=== PATIENT | male | born 1990 | race Two or more races ===

== ENCOUNTER 2019-07-12 17:12 | Inpatient (IN) | payer BC, MEDICAID ==
[~2019-07-12] VITALS: Ht 165.1 cm; Wt 77.6 kg
--- NOTE | 2019-07-12 20:30 | NUR ---
NURSE NOTES: Received report from GE Jauregui @ 1900. [place] [facility] [place] [facility] [place]. Pt transferred into room 319-1. R eyes swollen and can't open it, but no active bleeding. Ct scan result shows nasal bone and periorbital fracture but no acute intracranial hemorrhage or skull fracture. Pt c/o pain 10/10 on R eye and head. Pt has no other skin issue. IV Rt AC 18G intact and patent. Vitals stable. Reviewed belongings. Pt has no valuable belongings, only shorts and socks. Called Dr. Gomes to get an admission order. Bed locked, lowest position, alarm on, side rails up x 2, call light within reach. Will continue to monitor.
[2019-07-12 20:41] VITALS: BP 110/58
--- NOTE | 2019-07-12 21:00 | NUR ---
NURSE NOTES: Received order from Dr. Gomes. Orders noted and carried out.
[2019-07-12] MEDS ORDERED: Morphine Sulfate 2mg/ml Inj(IV/IM USE ONLY) IVP PRN (21:45)
[2019-07-12] MEDS: Morphine Sulfate 4mg/ml Inj (IV USE ONLY) IVP PRN (22:18)
[2019-07-12] MEDS: D5 1/2NS 1,000 ML IV SCH (22:18)
[2019-07-13] VITALS: BP 116/41
[2019-07-13 04:00] VITALS: BP 110/58
--- NOTE | 2019-07-13 07:39 | NUR ---
HAND-OFF: Report given to GE Dowd.
[2019-07-13 08:00] VITALS: BP 117/55
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
[2019-07-13 08:19] LABS: HEMATOCRIT 40.3 % (42.0-52.0); HEMOGLOBIN 13.7 G/DL (14.2-18.0); MEAN CORPUSCULAR VOLUME 94 FL (80-99); PLATELET COUNT 316 K/UL (150-450); RED CELL DISTRIBUTION WIDTH 12.5 % (11.6-14.8); WHITE BLOOD COUNT 9.2 K/UL (4.8-10.8)
[2019-07-13 08:37] LABS: ANION GAP 5 mmol/L (5-15); BLOOD UREA NITROGEN 9 mg/dL (7-18); CALCIUM 8.3 MG/DL (8.5-10.1); CARBON DIOXIDE 26 MMOL/L (21-32); CHLORIDE 107 MMOL/L (98-107); CREATININE 0.9 MG/DL (0.55-1.30); POTASSIUM 3.9 MMOL/L (3.5-5.1); SODIUM 138 MMOL/L (136-145)
[2019-07-13] MEDS: Morphine Sulfate 4mg/ml Inj (IV USE ONLY) IVP PRN ×2 (09:02→20:09)
[2019-07-13 12:00] VITALS: BP 111/63
[2019-07-13] MEDS: D5 1/2NS 1,000 ML IV SCH (13:39)
--- NOTE | 2019-07-13 14:21 | History & Physical ---
History and Physical History & Physicial Dictated for Int Med-Dr Gomes no. [id number]. Denver Sanchez MD Jul 13, 2019 14:21
[2019-07-13 16:00] VITALS: BP 118/82
--- NOTE | 2019-07-13 18:45 | NUR ---
NURSE NOTES: patient went to shower across the unit, ambulatory accompanied by girlfriend. Nurse provided clean clothes, toiletries and towels. Also educated regarding call light inside bathroom for any emergency, to summon nurse.
--- NOTE | 2019-07-13 19:23 | NUR ---
HAND-OFF: Report given to GE You.
--- NOTE | 2019-07-13 19:30 | NUR ---
NURSE NOTES: Received report from GE Dowd. Received pt laying in bed, AOX4, pain level 10/10. Will medicate for pain as needed. IV right AC patent and intact. Bed in lowest position and locked, side rails up x 2, call light within reach. Girlfriend at bedside. Will continue to monitor.
[2019-07-13 20:00] VITALS: BP 119/54
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
[2019-07-14] MEDS: D5 1/2NS 1,000 ML IV SCH ×2 (00:41→14:40)
[2019-07-14 05:54] LABS: HEMATOCRIT 40.2 % (42.0-52.0); HEMOGLOBIN 13.7 G/DL (14.2-18.0); MEAN CORPUSCULAR VOLUME 94 FL (80-99); PLATELET COUNT 306 K/UL (150-450); RED BLOOD COUNT 4.27 M/UL (4.70-6.10); RED CELL DISTRIBUTION WIDTH 12.3 % (11.6-14.8); WHITE BLOOD COUNT 9.4 K/UL (4.8-10.8)
[2019-07-14 05:59] VITALS: BP 119/59
[2019-07-14 06:13] LABS: ANION GAP 6 mmol/L (5-15); BLOOD UREA NITROGEN 11 mg/dL (7-18); CALCIUM 8.3 MG/DL (8.5-10.1); CARBON DIOXIDE 27 MMOL/L (21-32); CHLORIDE 106 MMOL/L (98-107); CREATININE 0.9 MG/DL (0.55-1.30); POTASSIUM 4.3 MMOL/L (3.5-5.1); SODIUM 139 MMOL/L (136-145)
[2019-07-14] MEDS ORDERED: D5 1/2NS 1000ml IV ONE ×2 (06:34→18:20)
--- NOTE | 2019-07-14 07:30 | NUR ---
HAND-OFF: Report given to GE langston. Pt in stable condition.
[2019-07-14 08:00] VITALS: BP 108/60
--- NOTE | 2019-07-14 08:38 | NUR ---
NURSE NOTES: Received report from [facility] [place]. Patient is in bed awake and able to verbalize needs. Stable. Denies pain or SOB. Patient encouraged to use call light for assistance, verbalized understanding. Plan of care discussed with patient. Patient is in bed in locked and lowest position with call light within reach. Will continue to monitor.
--- NOTE | 2019-07-14 09:47 | NUR ---
*-* NO INSURANCE INFORMATION IN THE BAR UNABLE TO SEND CLINICALS OR REVIEWS *-*
[2019-07-14 12:00] VITALS: BP 121/51
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
--- NOTE | 2019-07-14 13:15 | Pulmonology Progress Note ---
Assessment/Plan Problems: (1) Closed fracture nose (2) Contusion (3) No pertinent past medical history Assessment/Plan doing better facial pain is better controlled awaiting ENT Subjective ROS Limited/Unobtainable: No Interval Events: pain is better controlled Allergies: Coded Allergies: IODINE AND IODIDE CONTAINING PRODUC (Verified Allergy, Severe, Hives, 07/12) Shrimp (Verified Allergy, Severe, Hives, 07/12/19) Objective Last 24 Hour Vital Signs Date Time Temp Pulse Resp B/P (MAP) Pulse Ox O2 Delivery O2 Flow Rate FiO2 07/14/19 12:00 97.9 60 18 121/51 (74) 97 07/14/19 09:00 Room Air 07/14/19 08:00 97.8 64 18 108/60 (76) 97 07/14/19 05:59 98.0 61 18 119/59 (79) 95 07/13/19 21:00 Room Air 07/13/19 20:00 98.4 70 20 119/54 (75) 96 07/13/19 16:00 97.9 72 20 118/82 (94) 96 Intake and Output 07/13/19 07/14/19 19:00 07:00 Intake Total 2050 ml 1255 ml Balance 2050 ml 1255 ml Intake Oral 1600 ml 480 ml IV Total 450 ml 775 ml # Voids 5 3 # Bowel Movements 1 General Appearance: WD/WN HEENT: atraumatic Respiratory/Chest: lungs clear, no respiratory distress Cardiovascular: normal rate, regularly irregular Abdomen: normal bowel sounds, no organomegaly Genitourinary: normal external genitalia Extremities: no cyanosis Neurologic/Psychiatric: teradata solution architect II-XII grossly normal Laboratory Tests 07/14/19 05:25: White Blood Count 9.4, Red Blood Count 4.27L, Hemoglobin 13.7L, Hematocrit 40.2L , Mean Corpuscular Volume 94, Mean Corpuscular Hemoglobin 32.0H, Mean Corpuscular Hemoglobin Concent 34.0, Red Cell Distribution Width 12.3, Platelet Count 306, Mean Platelet Volume 4.8L, Neutrophils (%) (Auto) , Lymphocytes (%) ( Auto) , Monocytes (%) (Auto) , Eosinophils (%) (Auto) , Basophils (%) (Auto) , Sodium Level 139, Potassium Level 4.3, Chloride Level 106, Carbon Dioxide Level 27, Anion Gap 6, Blood Urea Nitrogen 11, Creatinine 0.9, Estimat Glomerular Filtration Rate > 60, Glucose Level 112H, Calcium Level 8.3L Current Medications Medications (Trade) Dose Ordered Sig/Zara Route PRN Reason Start Time Stop Time Status Last Admin Dose Admin Acetaminophen (Tylenol) 650 mg Q6H PRN ORAL Mild Pain/Temp > 100.5 07/12/19 21:45 08/11/19 21:44 Clindamycin HCl/ Dextrose 50 ml @ 100 mls/hr Q8HR IV 07/12/19 23:00 07/19/19 22:59 07/14/19 05:47 Dextrose/Sodium Chloride 1,000 ml @ 75 mls/hr [id number] IV 07/12/19 22:00 08/11/19 21:59 07/14/19 00:41 Morphine Sulfate (Morphine Sulfate) 2 mg Q4H PRN IVP Moderate Pain (Pain Scale 4-6) 07/12/19 21:45 07/19/19 21:44 07/14/19 05:57 Morphine Sulfate (Morphine Sulfate) 4 mg Q4H PRN IVP Severe Pain (Pain Scale 7-10) 07/12/19 21:45 07/19/19 21:44 07/13/19 20:09 Ondansetron HCl (Zofran) 4 mg Q4H PRN IVP Nausea & Vomiting 07/12/19 21:45 08/11/19 21:44 07/14/19 05:49 Soraya Monson MD Jul 14, 2019 13:15
--- NOTE | 2019-07-14 15:36 | NUR ---
CASE MANAGEMENT:INITIAL REVIEW 29YR OLD MALE BIBA: DIRECT ADMIT FROM [place] CC: FACIAL CONTUSION SI: FACIAL CONTUSION 98.2 90 18 110/58 97% ON RA IS: IV CLINDAMYCIN Q8HR IV DEXTROSE @75HR IV ZOFRAN Q4/PRN IV MORPHINE SULFATE Q4/PRN IV MORPHINE SULFATE Q4/PRN : 3E MED SURG DCP: HOME WHEN MEDICALLY CLEARED CASE MANAGEMENT: REVIEW 07/13/19 SI: FACIAL CONTUSION 97.9 71 20 110/58 98% ON RA CA+ 8.3; RBC 4.30; H/H 13.7/40.2 IS: IV CLINDAMYCIN Q8HR IV DEXTROSE @75HR IV ZOFRAN Q4/PRN IV MORPHINE SULFATE Q4/PRN IV MORPHINE SULFATE Q4/PRN : 3E MED SURG DCP: HOME WHEN MEDICALLY CLEARED CASE MANAGEMENT: REVIEW 07/14/19 SI: FACIAL CONTUSION 97.8 64 18 108/60 97% ON RA CA 8.3; RBC 4.27; H/H 13.7/40.2 IS: IV CLINDAMYCIN Q8HR IV DEXTROSE @75HR IV ZOFRAN Q4/PRN IV MORPHINE SULFATE Q4/PRN IV MORPHINE SULFATE Q4/PRN : 3E MED SURG DCP: HOME WHEN MEDICALLY CLEARED PLAN: CONSULT
[2019-07-14 16:00] VITALS: BP 117/49
--- NOTE | 2019-07-14 16:42 | NUR ---
*-* INSURANCE *-* ALL CLINICALS AND REVIEWS HAVE BEEN FAXED TO: SY Ref#[id number] No [facility]#[phone]
--- NOTE | 2019-07-14 18:20 | NUR ---
NURSE NOTES: Patient discharged home as ordered. Stable. Denies pain or SOB. Patient was given thorough discharge instructions by RN. Patient verbalized understanding. Patient has written instructions to take home as well. Patient has all belongings. Ice pack given to patient to take home. Patient's girlfriend is at bedside and followed along with discharge instructions. No IV access. Skin is clean, dry, and intact. Patient assisted into private car by girlfriend without incident.
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
--- NOTE | 2019-07-15 10:51 | NUR ---
*-* INSURANCE *-* DISCHARGE SUMMARY HAS BEEN FAXED TO: SY Ref#[id number] No [facility]#[phone]
== END 2019-07-14 18:21 | disposition home or self-care (01) | DRG 155 ==
LOC: 3E 19:56
DX: S02.2XXA Fracture of nasal bones, initial encounter for closed fracture (principal); S02.31XA Fracture of orbital floor, right side, initial encounter for closed fracture; F07.81 Postconcussional syndrome; S00.83XA Contusion of other part of head, initial encounter; Z88.8 Allergy status to other drugs, medicaments and biological substances; Y09 Assault by unspecified means
CPT/HCPCS: 36415; 80048; 83735; 85007; 85025; 85610; 85730; J2405; S0077

== ENCOUNTER 2019-07-16 12:22 | Day surgery (SDC) | payer BC, MEDICAID ==
[2019-07-16] VITALS (8 sets, daily range): BP systolic 111–145; BP diastolic 59–78
[~2019-07-16] VITALS: Ht 167.6 cm; Wt 81.6 kg
[2019-07-16] MEDS ORDERED: Lidocaine 1% 10mg/ml/Epi 0.005mg/ml 30ml vial INJ ONE (12:43)
[2019-07-16] MEDS ORDERED: Oxymetazoline 0.05% Na Spray 30ml NASAL ONE (12:43)
[2019-07-16] MEDS ORDERED: Bupivacaine 0.5% Inj 30 ml vial INJ ONE (12:44)
--- NOTE | 2019-07-16 12:51 | Pre-Procedure Note/Attestation ---
Pre-Procedure Note/Attestation Complete Prior to Procedure Planned Procedure: not applicable Procedure Narrative: closed reduction nasal bone fracture Indications for Procedure Pre-Operative Diagnosis: nasal bone fracture Attestation I attest that I discussed the nature of the procedure; its benefits; risks and complications; and alternatives (and the risks and benefits of such alternatives ), prior to the procedure, with the patient (or the patient's legal visitor services representative). I attest that, if there was a reasonable possibility of needing a blood transfusion, the patient (or the patient's legal visitor services representative) was given the [facility] standardized written summary, pursuant to the Dima Tierney Blood Safety Act ([place] Health and Safety Code # 1645, as amended). I attest that I re-evaluated the patient just prior to the surgery and that there has been no change in the patient's H&P, except as documented below: Meghan Berry MD Jul 16, 2019 12:51
[2019-07-16] MEDS ORDERED: Dyna-Hex 2% Top Sol 2oz TOPIC ONE (12:55)
[2019-07-16] MEDS ORDERED: PERCOCET 10-321 EACH ORAL (12:58)
[2019-07-16] MEDS ORDERED: Cocaine HCl 4% 4ml vial TOPIC ONE (13:00)
[2019-07-16] MEDS ORDERED: LR 1000ml ONE (13:30)
[2019-07-16] MEDS ORDERED: NS Irrig 1000ml ONE (13:30)
[2019-07-16] MEDS ORDERED: Sterile Water Irrig 1000ml IRRIG ONE (13:30)
[2019-07-16] MEDS ORDERED: Metoprolol 5mg/5ml Inj ONE (13:30)
[2019-07-16] MEDS ORDERED: Rocuronium Bromide 50mg/5ml Inj IV ONE (13:43)
[2019-07-16] MEDS ORDERED: Dexamethasone 4mg/ml vial ONE (13:44)
[2019-07-16] MEDS ORDERED: Lidocaine 1% MPF 10mg/ml 5ml ONE (13:44)
[2019-07-16] MEDS ORDERED: Sodium Chloride 10ml vial INJ ONE (13:44)
[2019-07-16] MEDS ORDERED: Metoclopramide 10mg/2ml Inj ONE (13:55)
[2019-07-16] MEDS ORDERED: Sugammadex Sodium 200mg/2ml vial IV ONE (14:05)
[2019-07-16] MEDS ORDERED: BSS 15ml BTL ONE (14:08)
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
--- NOTE | 2019-07-16 14:33 | Anethesia Preoperative Eval ---
Anesthesia Pre-op PMH/ROS General Date of Evaluation: Jul 16, 2019 Time of Evaluation: 13:24 Anesthesiologist: Julia ASA Score: ASA 2 Mallampati Score Class I : Soft palate, uvula, fauces, pillars visible Class II: Soft palate, uvula, fauces visible Class III: Soft palate, base of uvula visible Class IV: Only hard plate visible Mallampati Classification: Class I Surgeon: Jamal Diagnosis: Nasal Fx Surgical Procedure: Closed Reduction Nasal Fx Anesthesia History: none Family History: no anesthesia problems Allergies: Coded Allergies: IODINE AND IODIDE CONTAINING PRODUC (Verified Allergy, Severe, Hives, 07/12) Shrimp (Verified Allergy, Severe, Hives, 07/12/19) Medications: see eMAR Patient NPO?: Yes Past Medical History Cardiovascular: Reports: other - HL Gastrointestinal/Genitourinary: Reports: GERD Other: obesity - BMI 30 Anesthesia Pre-op Phys. Exam Physician Exam Last Vital Signs Date Time Temp Pulse Resp B/P (MAP) Pulse Ox O2 Delivery O2 Flow Rate FiO2 07/16/19 12:59 Room Air 07/16/19 12:40 97.6 72 18 126/70 100 Constitutional: NAD Neurologic: CN 2-12 intact Cardiovascular: RRR Respiratory: CTA Gastrointestinal: S/NT/ND Airway Exam Mallampati Score: Class I MO: full ROM: full Teeth: intact Anesthesia Pre-op A/P Risk Assessment & Plan Assessment: ASA 2 Plan: GA, SED Status Change Before Surgery: Karl Hartmann MD Jul 16, 2019 14:33
--- NOTE | 2019-07-16 14:36 | Immediate Post-Op Evaluation ---
Immediate Post-Op Evalulation Immediate Post-Op Evalulation Procedure: Closed Reduction Nasal FX Date of Evaluation: Jul 16, 2019 Time of Evaluation: 14:47 IV Fluids: 700 LR Blood Products: 0 Estimated Blood Loss: 25 Urinary Output: 0 Blood Pressure Systolic: 131 Blood Pressure Diastolic: 49 Pulse Rate: 107 Respiratory Rate: 16 O2 Sat by Pulse Oximetry: 99 Temperature (Fahrenheit): 98 Pain Score (1-10): 2 Nausea: No Vomiting: No Complications 0 Patient Status: awake, reacts, patent, extubated, none Hydration Status: adequate Karl Dumont MD Jul 16, 2019 14:36
--- NOTE | 2019-07-16 14:37 | 48 Hour Post Anesthesia Eval ---
Post Anesthesia Evaluation Procedure: Closed Reduction Nasal FX Date of Evaluation: Jul 16, 2019 Time of Evaluation: 16:53 Blood Pressure Systolic: 128 0: 48 Pulse Rate: 81 Respiratory Rate: 18 Temperature (Fahrenheit): 98.2 O2 Sat by Pulse Oximetry: 99 Airway: patent Nausea: No Vomiting: No Pain Intensity: 2 Hydration Status: adequate Cardiopulmonary Status: Stable Mental Status/LOC: patient returned to baseline Follow-up Care/Observations: 0 Post-Anesthesia Complications: 0 Follow-up care needed: ready to discharge Karl Dumont MD Jul 16, 2019 14:37
[2019-07-16] MEDS ORDERED: LR 1000ml 1,000 ML IVLG SCH (14:47)
[2019-07-16] MEDS ORDERED: Ketorolac 30mg Inj ONE (14:50)
[2019-07-16] MEDS ORDERED: Atropine Sulfate 0.4mg/ml inj IVP PRN (15:00)
[2019-07-16] MEDS ORDERED: Meperidine 50mg/ml Inj(FOR RIGORS ONLY) IVP PRN (15:00)
[2019-07-16] MEDS ORDERED: fentaNYL 100 mcg/2 mL IV PRN (15:00)
[2019-07-16] MEDS ORDERED: Labetalol 5mg/ml 20ml vial IV PRN (15:00)
[2019-07-16] MEDS ORDERED: LORazepam Inj 2mg/ml 1ml IV PRN (15:00)
[2019-07-16] MEDS ORDERED: Ketorolac 30mg Inj IV PRN ×2 (15:00)
[2019-07-16] MEDS ORDERED: Hydromorphone 0.5mg/0.5ml inj IVP PRN (15:00)
[2019-07-16] MEDS ORDERED: oxyCODONE HCL/Acetaminophen 5/325mg ORAL PRN (15:00)
[2019-07-16] MEDS ORDERED: Metoclopramide 10mg/2ml Inj IVP PRN (15:00)
[2019-07-16] MEDS ORDERED: Midazolam 2mg/2ml Inj IVP PRN (15:00)
[2019-07-16] MEDS ORDERED: DiphenhydrAMINE 50mg/ml Inj IVP PRN (15:00)
[2019-07-16] MEDS ORDERED: HYDROcodone/Acetamin 5/325 tab ORAL PRN (15:00)
[2019-07-16] MEDS ORDERED: HYDROcodone/Acetamin 7.5/325 tab ORAL PRN (15:00)
== END 2019-07-16 15:45 | disposition home or self-care (01) ==
LOC: SUR 12:22
DX: S02.2XXA Fracture of nasal bones, initial encounter for closed fracture (principal); K21.9 Gastro-esophageal reflux disease without esophagitis; E66.9 Obesity, unspecified; Z68.29 Body mass index [BMI] 29.0-29.9, adult; X58.XXXA Exposure to other specified factors, initial encounter; Y92.9 Unspecified place or not applicable
CPT/HCPCS: 21315; J1100; J1885; J2250; J2405; J2765; 94003; 94150